=== PATIENT | male | born 1965 | race Caucasian/White ===

== ENCOUNTER 2024-02-29 01:52 | Day surgery (SDC) | payer OTHER, SELFPAY ==
[2024-02-18 10:01] VITALS: BMI 26.3
[2024-02-29 09:40] VITALS: BP 137/92; PULSE 72; RESP 18; TEMP 36.7; O2SAT 100
[2024-02-29] MEDS: LACTATED RINGERS 1,000 ML 150 ML IV CONT (09:43)
--- NOTE | 2024-02-29 11:22 | WPDANESEPPF ---
Anes - Initial Pre Proc Eval Procedure: Operation Date: 02/29/24 10:30 Proposed Procedures p Screening Colonoscopy - Regino Ruiz MD Date/Time: 02/29/24 11:22 Surgeon: Regino Ruiz MD Pre Op Diagnosis: screening colon Patient Data Age: 59 Gender: M Height: 1.88 m Weight: 94 kg Last Vital Signs Temp 98.0 F 02/29/24 09:40 Pulse 72 02/29/24 09:40 Resp 18 02/29/24 09:40 BP 137/92 H 02/29/24 09:40 Pulse Ox 100 02/29/24 09:40 O2 Del Method Room Air 02/29/24 09:40 Allergies Allergy/AdvReac Type Severity Reaction Status Date / Time No Known Allergies Allergy Verified 02/18/24 10:03 Home Medications ?Medication ?Instructions ?Recorded ?Confirmed ?Type alprazolam 0.5 mg tablet 0.25 mg PO DAILY PRN anxiety 02/18/24 02/18/24 History aspirin 81 mg capsule 81 mg PO DAILY 02/18/24 02/18/24 History atorvastatin 40 mg tablet 40 mg PO DAILY 02/18/24 02/18/24 History metoprolol succinate 50 mg 50 mg PO DAILY 02/18/24 02/18/24 History tablet,extended release 24 hr pantoprazole 40 mg tablet,delayed 40 mg PO DAILY 02/18/24 02/18/24 History release paroxetine HCl 40 mg tablet 40 mg PO DAILY 02/18/24 02/18/24 History Patient hx anesthesia problems: none Family hx anesthesia problems: none Results Review: All pre-operative results and documents have been reviewed as part of the pre-operative evaluation. [facility] Social History Social History Smoking status: Former smoker Tobacco type: cigars Substance use type: does not use Living arrangements: with family Spiritual care concerns: No Anes - Eval Final PreProcedure Day of Procedure 02/29/24 11:22 Patient weight: overweight Heart: regular rate and rhythm Lungs: normal air movement Airway: Mallampati scale class II Neurological: alert and oriented Last oral intake: >/= 8 hours ASA classification: II Emergent: no Anesthetic plan: proceed Anesthesia type and monitoring: general GIVS and standard monitoring Results Review: All pre-operative results and documents have been reviewed as part of the pre-operative evaluation. HTN, hyperlipidemia, ex smoker, anxiety. Informed Consent: The patient's anesthetic plan and its attendant risks and benefits were discussed with the patient/family/POA. Questions were solicited and answers provided to the satisfaction of the patient/family/POA.
--- NOTE | 2024-02-29 11:33 | PM.IMHP ---
H&P: HPI History of Present Illness Date/Time: 02/29/24 11:33 Chief Complaint: Screening colonoscopy Narrative: This is the patient's second colonoscopy. There are no GI symptoms and there is no family history of colorectal cancer. Review of Systems Review of Systems: All systems reviewed & are unremarkable except as noted in HPI and below PMFSH Social History Social History Smoking status: Former smoker Tobacco type: cigars Substance use type: does not use Living arrangements: with family Spiritual care concerns: No Meds Home Medications and Allergies Home Medications ?Medication ?Instructions ?Recorded ?Confirmed ?Type alprazolam 0.5 mg tablet 0.25 mg PO DAILY PRN anxiety 02/18/24 02/18/24 History aspirin 81 mg capsule 81 mg PO DAILY 02/18/24 02/18/24 History atorvastatin 40 mg tablet 40 mg PO DAILY 02/18/24 02/18/24 History metoprolol succinate 50 mg 50 mg PO DAILY 02/18/24 02/18/24 History tablet,extended release 24 hr pantoprazole 40 mg tablet,delayed 40 mg PO DAILY 02/18/24 02/18/24 History release paroxetine HCl 40 mg tablet 40 mg PO DAILY 02/18/24 02/18/24 History Allergies Allergy/AdvReac Type Severity Reaction Status Date / Time No Known Allergies Allergy Verified 02/18/24 10:03 Vital Signs Vital Signs - 24 hr 02/29/24 09:40 Temperature 98.0 F Pulse Rate 72 Respiratory Rate 18 Blood Pressure 137/92 H Pulse Oximetry 100 Oxygen Delivery Room Air Exam Const: General: cooperative and healthy appearing Resp: Effort & Inspection: normal respiratory effort and able to speak in complete sentences Auscultation: clear to auscultation bilaterally Cardio: Rate: regular rate Rhythm: regular rhythm GI: Inspection: normal to inspection GI Palp: No No hepatosplenomegaly present Auscultation: normal bowel sounds Rectal Exam: deferred Skin: General skin exam: normal color Psych: Appearance: grossly normal Mental Status: mental status grossly normal Assessment and Plan Assessment and plan (1) Encounter for screening colonoscopy: Code(s): Z12.11 - Encounter for screening for malignant neoplasm of colon Status: Acute Assessment and Plan: The patient is deemed a good candidate for the procedure. Consent signed. Will proceed.
--- NOTE | 2024-02-29 11:53 | PM.IMHP ---
H&P: HPI History of Present Illness Date/Time: 02/29/24 11:53 Chief Complaint: screening for colon cancer Narrative: This is the patient's 2nd colonoscopy. There are no GI symptoms and there is no family history of colorectal cancer. Review of Systems Review of Systems: All systems reviewed & are unremarkable except as noted in HPI and below PMFSH Social History Social History Smoking status: Former smoker Tobacco type: cigars Substance use type: does not use Living arrangements: with family Spiritual care concerns: No Meds Home Medications and Allergies Home Medications ?Medication ?Instructions ?Recorded ?Confirmed ?Type alprazolam 0.5 mg tablet 0.25 mg PO DAILY PRN anxiety 02/18/24 02/18/24 History aspirin 81 mg capsule 81 mg PO DAILY 02/18/24 02/18/24 History atorvastatin 40 mg tablet 40 mg PO DAILY 02/18/24 02/18/24 History metoprolol succinate 50 mg 50 mg PO DAILY 02/18/24 02/18/24 History tablet,extended release 24 hr pantoprazole 40 mg tablet,delayed 40 mg PO DAILY 02/18/24 02/18/24 History release paroxetine HCl 40 mg tablet 40 mg PO DAILY 02/18/24 02/18/24 History Allergies Allergy/AdvReac Type Severity Reaction Status Date / Time No Known Allergies Allergy Verified 02/18/24 10:03 Vital Signs Vital Signs - 24 hr 02/29/24 09:40 Temperature 98.0 F Pulse Rate 72 Respiratory Rate 18 Blood Pressure 137/92 H Pulse Oximetry 100 Oxygen Delivery Room Air Exam Const: General: cooperative and healthy appearing Resp: Effort & Inspection: normal respiratory effort and able to speak in complete sentences Auscultation: clear to auscultation bilaterally Cardio: Rate: regular rate Rhythm: regular rhythm GI: Inspection: normal to inspection GI Palp: No No hepatosplenomegaly present Auscultation: normal bowel sounds Rectal Exam: deferred Skin: General skin exam: normal color Psych: Appearance: grossly normal Mental Status: mental status grossly normal Assessment and Plan Assessment and plan (1) Encounter for screening colonoscopy: Code(s): Z12.11 - Encounter for screening for malignant neoplasm of colon Status: Acute Assessment and Plan: The patient is deemed a good candidate for the procedure. Consent signed. Will proceed.
[2024-02-29 11:54] VITALS: BP 121/77; PULSE 72; RESP 27; O2SAT 100
[2024-02-29 12:04] VITALS: BP 141/90; PULSE 68; RESP 15; O2SAT 100
[2024-02-29 12:14] VITALS: BP 144/88; PULSE 65; RESP 18; O2SAT 100
== END 2024-02-29 12:22 | disposition home or self-care (01) ==
PROVIDERS: Visit Provider Internal Medicine Gastroenterology
PROC: 0DJD8ZZ Inspection of Lower Intestinal Tract, Via Natural or Artificial Opening Endoscopic (ICD-10-PCS; CPT 45378; principal; 2024-02-29 10:30)
DX: Z12.11 Encounter for screening for malignant neoplasm of colon (principal); K64.8 Other hemorrhoids; Z79.82 Long term (current) use of aspirin; Z87.891 Personal history of nicotine dependence
CPT/HCPCS: 45378; J2003; J2704; J7120

== ENCOUNTER 2024-07-10 20:21 | Emergency (ER) | payer OTHER, SELFPAY ==
--- NOTE | ~2024-07-10 | CT_ITS ---
CT cervical spine wo con Ordering provider: Hannah Pope PA-C History: . left sided neck pain . Comparison: None. Technique: CT of the cervical spine was performed without contrast. Sagittal and coronal reformatted images were also obtained and reviewed. Automated exposure control and iterative reconstruction elizabeth hnique were employed. The dose-length product was 433.83 mGy-cm. FINDINGS: VERTEBRAE: No subluxation or acute fracture. The occipital condyles are intact. DISC SPACES: Normal. Narrowing of the foramina at the level of C3-C4 , and C4-C5. Multilevel facet joint disease. PARASPINOUS SOFT TISSUES: Nodule seen in the left lobe of the thyroid with calcification. Ultrasound evaluation advised. IMPRESSION: No acute osseous abnormality cervical spine. Multilevel intervertebral foraminal narrowing. MRI is better for evaluation. Reviewed, dictated and finalized at location A.
--- NOTE | 2024-07-10 20:29 | ECG_ITS ---
Test Date: 2024-07-10 20:36:08 Measurements Intervals [place] Rate: 73 P: 32 [place]: 163 QRS: 38 QRSD: 89 T: 37 QT: 370 QTc: 409 Interpretive Statements SINUS RHYTHM POSSIBLE LEFT ATRIAL ENLARGEMENT MINIMAL Q WAVES- HIGH LATERAL LEADS BASELINE ARTIFACT- I, II, III, AVR BORDERLINE ECG No previous ECG available for comparison Electronically Signed On 07-11-2024 06:17:03 CDT by Syed Gould D.O.
[2024-07-10 20:30] VITALS: BP 152/94; PULSE 79; RESP 15; TEMP 36.1; O2SAT 100
--- NOTE | 2024-07-10 20:44 | ED_ITS ---
HPI - General Adult General Chief complaint: Unspecified Stated complaint: L neck radiating to L elbow pain Time Seen by Provider: 07/10/24 20:44 Source: patient Mode of arrival: ambulatory Limitations: no limitations History of Present Illness HPI narrative: This is a 59 year old male that presents to the ER for neck pain. Ongoing over the last week. Intermittent in nature. No known alleviating or exacerbating factors. He has not taken anything for pain. No recent injuries. Reports the pain radiates into his shoulder. Denies chest pain, shortness of breath, numbness, weakness. Related Data Home Medications ?Medication ?Instructions ?Recorded ?Confirmed ?Last Taken ?Type alprazolam 0.5 mg tablet 0.25 mg PO DAILY PRN anxiety 02/18/24 02/18/24 Unknown History aspirin 81 mg capsule 81 mg PO DAILY 02/18/24 02/18/24 Unknown History atorvastatin 40 mg tablet 40 mg PO DAILY 02/18/24 02/18/24 Unknown History metoprolol succinate 50 mg 50 mg PO DAILY 02/18/24 02/18/24 Unknown History tablet,extended release 24 hr pantoprazole 40 mg tablet,delayed 40 mg PO DAILY 02/18/24 02/18/24 Unknown History release paroxetine HCl 40 mg tablet 40 mg PO DAILY 02/18/24 02/18/24 Unknown History Allergies Allergy/AdvReac Type Severity Reaction Status Date / Time No Known Allergies Allergy Verified 07/10/24 20:23 Review of Systems 2 Review of Systems: All systems reviewed & are unremarkable except as noted in HPI and below PMFSH Past Medical History Medical History (Updated 07/11/24 @ 00:20 by Hannah Pope PA-C) Essential hypertension History of anxiety Social History Social History Smoking status: Former smoker Tobacco type: cigars Substance use type: does not use Living arrangements: with family Spiritual care concerns: No Exam 2 Narrative: GENERAL: Well-appearing, well-nourished, and in no acute distress. HEAD: Normocephalic, atraumatic. EYES: EOMI. ENT: Nares clear, no rhinorrhea or epistaxis. Mucous membranes moist. Oropharynx without tonsillar hypertrophy exudate or other lesions. NECK: Supple. No adenopathy or masses. CHEST: Clear to auscultation. No respiratory distress. No wheezes rales or rhonchi HEART: Regular rate and rhythm. No murmur heard. Normal peripheral pulses. EXTREMITIES: Normal range of motion. No edema. Strength equal in bilateral upper extremities (5/5) SKIN: Warm, dry, no rash. NEURO: No focal deficits. Alert and oriented x3. PSYCH: Normal mood and affect Course Course Emergency Course: Patient updated on his workup and agrees with plan of care Vital Signs Vital signs: Vital Signs Temperature 96.9 F L 07/10/24 20:30 Pulse Rate 79 07/10/24 20:30 Respiratory Rate 15 07/10/24 20:30 Blood Pressure 152/94 H 07/10/24 20:30 Pulse Oximetry 100 07/10/24 20:30 Oxygen Delivery Room Air 07/10/24 20:30 Temperature 96.9 F L 07/10/24 20:30 Pulse Rate 71 07/10/24 23:26 Respiratory Rate 13 07/10/24 23:26 Blood Pressure 159/102 H 07/10/24 23:26 Pulse Oximetry 98 07/10/24 23:26 Oxygen Delivery Room Air 07/10/24 20:30 Medical Decision Making MDM Narrative Medical decision making narrative: Patient presents to the emergency department for left-sided neck pain radiating into the arm. He is afebrile and nontoxic appearing. He is neurologically intact. His vitals are stable. Cbc metabolic panel without concerning findings. EKG without acute changes in his baseline troponin is negative. CT cervical spine without acute osseous abnormalities. Shows some foraminal narrowing. Patient updated on his workup and agrees with plan of care. He is to follow up with primary provider. He was given warnings to return to the ER Differential Diagnosis Differential Diagnosis: Cervical radiculopathy, muscle strain, muscle spasm Vital Signs Vital Signs: Vital Signs Temperature 96.9 F L 07/10/24 20:30 Pulse Rate 79 07/10/24 20:30 Respiratory Rate 15 07/10/24 20:30 Blood Pressure 152/94 H 07/10/24 20:30 Pulse Oximetry 100 07/10/24 20:30 Oxygen Delivery Room Air 07/10/24 20:30 Temperature 96.9 F L 07/10/24 20:30 Pulse Rate 71 07/10/24 23:26 Respiratory Rate 13 07/10/24 23:26 Blood Pressure 159/102 H 07/10/24 23:26 Pulse Oximetry 98 07/10/24 23:26 Oxygen Delivery Room Air 07/10/24 20:30 Lab Data Lab results reviewed: Yes I reviewed the patient's lab results. 07/10/24 21:02 07/10/24 21:02 Labs: Lab Results 07/10/24 Range/Units 21:02 WBC 7.0 (4.5-10.0) K/mm3 RBC 4.59 L (4.6-6.20) M/mm3 Hgb 14.0 (14.0-18.0) g/dL Hct 42.8 (42.0-52.0) % MCV 93.2 (80-100) fl MCH 30.5 (26-34) pg MCHC 32.7 (32-36) g/dl RDW 12.4 (11.5-14.5) % Plt Count 226 (150-375) k/mm3 MPV 9.6 (7.4-10.4) fl Immature Gran % (Auto) 0.6 H (0-0.5) % Neut % (Auto) 60.2 (45.5-73.1) % Lymph % (Auto) 23.4 (18.3-44.2) % [place] % (Auto) 8.1 (2.6-8.5) % Eos % (Auto) 6.8 H (0-4.4) % Baso % (Auto) 0.9 (0.2-1.2) % Lymph # (Auto) 1.65 (0.9-3.2) K/mm3 [place] # (Auto) 0.6 (0.1-0.6) K/mm3 Eos # (Auto) 0.5 H (0-0.3) K/mm3 Baso # (Auto) 0.1 (0.0-0.1) K/mm3 Abs Immat Gran (auto) 0.04 H (0.00-0.031) K/mm3 Absolute Neuts (auto) 4.2 (1.3-6.7) K/mm3 Absolute Nucleated RBC 0.000 (0.0-0.012) K/mm3 Nucleated RBC % 0.0 (0.0-0.2) % Sodium 140 (137-145) mmol/L Potassium 4.3 (3.4-5.0) mmol/L Chloride 105 (98-107) mmol/L Carbon Dioxide 29 (22-30) mmol/L Anion Gap 6 (4-12) mmol/L BUN 17 (9-20) mg/dL Creatinine 0.99 (0.7-1.3) mg/dL Estim Creat Clear Calc 85 ml/min Estimated GFR > 60 (59 - ) Glucose 124 H (65-110) mg/dL Calcium 9.2 (8.4-10.2) mg/dL Total Bilirubin 0.4 (0.2-1.3) mg/dL AST 42 (17-59) U/L ALT 57 H (6-50) U/L Alkaline Phosphatase 71 (38-126) U/L Troponin I < 0.012 (0.000-0.034) ng/mL Total Protein 6.8 (6.3-8.2) g/dL Albumin 4.0 (3.5-5.1) g/dL Imaging Data Radiologist's impression: ITS Impressions Cervical Spine CT 07/10/24 23:18 IMPRESSION: No acute osseous abnormality cervical spine. Multilevel intervertebral foraminal narrowing. MRI is better for evaluation. ECG Data EKG #1: ECG completion date: 07/10/24 EKG Interpretation: normal rate, sinus rhythm, no ST changes and normal QT Critical Care Time Critical Care Time Critical Care Time: No Discharge Plan Discharge Clinical Impression: Neck pain Patient Disposition: Home Condition: Stable Instructions: Cervical Strain (ED), Cervical Spinal Stenosis (ED) Additional Instructions: Return to the ER if you experience chest pain, shortness of breath, weakness, numbness, or any other symptoms that are concerning to you Rest, use ice/heat, take anti-inflammatories (Aleve, Ibuprofen, Naproxen, etc) or Tylenol as needed for pain Follow up with your primary care doctor Patient Language: Danish Prescriptions: No Action metoprolol succinate 50 mg tablet extended release 24 hr 50 mg PO DAILY atorvastatin 40 mg tablet 40 mg PO DAILY paroxetine HCl 40 mg tablet 40 mg PO DAILY pantoprazole 40 mg tablet,delayed release (DR/EC) 40 mg PO DAILY alprazolam 0.5 mg tablet 0.25 mg PO DAILY PRN (Reason: anxiety) aspirin 81 mg capsule 81 mg PO DAILY Follow-up/Referrals: PHYSICIAN NOT ON STAFF,NONSTAFF [Primary Care Provider] -
[2024-07-10 20:48] VITALS: BP 163/97; PULSE 76; RESP 10; O2SAT 100
[2024-07-10 21:16] LABS: Basophils Absolute Auto 0.1 K/mm3 (0.0-0.1); Basophils Percent Auto 0.9 % (0.2-1.2); Eosinophils Absolute Auto 0.5 K/mm3 (0-0.3); Eosinophils Percent Auto 6.8 % (0-4.4); Hematocrit 42.8 % (42.0-52.0); Immature Granulocyte Absolute 0.04 K/mm3 (0.00-0.031); Immature Granulocyte Percent A 0.6 % (0-0.5); Lymphocytes Absolute Auto 1.65 K/mm3 (0.9-3.2); Lymphocytes Percent Auto 23.4 % (18.3-44.2); Mean Corpuscular HGB Conc 32.7 g/dl (32-36); Mean Corpuscular Hemoglobin 30.5 pg (26-34); Mean Corpuscular Volume 93.2 fl (80-100); Mean Platelet Volume 9.6 fl (7.4-10.4); Monocytes Absolute Auto 0.6 K/mm3 (0.1-0.6); Monocytes Percent Auto 8.1 % (2.6-8.5); Neutrophils Absolute Auto 4.2 K/mm3 (1.3-6.7); Neutrophils Percent Auto 60.2 % (45.5-73.1); Platelet Count Result 226 k/mm3 (150-375); Red Blood Count 4.59 M/mm3 (4.6-6.20); Red Cell Distribution Width 12.4 % (11.5-14.5)
--- OUTSIDE RECORDS SUMMARY | 2024-07-10 21:16 | XMS_ITS | Referral Summary ---
Author Organization [facility] Address [address] [place] [address] Care Team Providers Care Skiing Instructor Name Role Phone Kilo Wakefield MD Primary Care Provider [phone] Allergies No known active allergies Medications multivitamin capsule Take 1 capsule by mouth daily Active omega 6-yah-toy-fish oil (Fish OiL) 100-160-1,000 mg capsule Active ciprofloxacin-d exAMETHasone (CIPRODEX) otic suspension Administer 4 drops into the right ear 2 (two) times a day 7.5 mL 2 Active Additional Information Patient not taking.Reported on 10/24/2023 metoprolol XL (TOPROL-XL) 50 mg extended release tablet TAKE 1 TABLET BY MOUTH EVERY MORNING 90 tablet [address] (PROTONIX) 40 mg EC tablet TAKE 1 TABLET BY MOUTH EVERY MORNING 90 tablet 1 5 02/10/19 26 Active tamsulosin (FLOMAX) 0.4 mg extended release capsule TAKE 1 CAPSULE(0.4 MG) BY MOUTH DAILY 30 capsule 5 5 Active ALPRAZolam (XANAX) 0.5 mg tablet TAKE 1 TABLET(0.5 MG) BY MOUTH THREE TIMES DAILY NEEDED FOR ANXIETY 30 tablet 5 Active PARoxetine (PAXIL) 40 mg tablet TAKE 1 TABLET BY MOUTH EVERY DAY 90 tablet 1 5 Active atorvastatin (LIPITOR) 40 mg tablet TAKE 1 TABLET BY MOUTH EVERY MORNING 90 tablet 1 5 06/04/19 26 Active Active Problems Problem Noted Date Diagnosed Date Benign prostatic hyperplasia with urinary freque ncy 10/24/2023 Assessment & Plan (10/24/2023 2:41 PM CDT): Start Flomax. Trochanteric bursitis of right hip 10/24/2023 Assessment & Plan (10/24/2023 3:09 PM CDT): NSAIDs PRN. 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 Right ear pain 09/28/2021 Assessment & Plan (09/28/2021 3:21 PM CDT): Start Ciprodex. If no improvement, send to ENT. Encounter for preventive care 03/30/2021 Assessment & Plan (04/18/2023 3:35 PM CDT): Exercise 30 minutes per day 5x weekly. Eat heart healthy (Mediterranean) diet of fruits, vegetables, and whole grains; avoid saturated fats and excess sweets. I recommended that he schedule his colonoscopy. Check PSA today. Annual flu shot Annual COVID shot Shingrix (shingles) shots (2 shots, 2-6 months apart) Assessment & Plan (03/30/2021 4:30 PM MIX MILL TENDER): Continue healthy lifestyle. I will send him back to GI as he is likely due for another colonoscopy (Dr. Escalera referral). PSA screening today along with general labs. Recommend Shingrix and flu shot. Routine general medical exam ination at a health care facility 03/17/2020 Gastroesophageal reflux disease 03/17/2020 Assessment & Plan (04/18/2023 3:35 PM CDT): Continue PPI. Assessment & Plan (03/30/2021 4:29 PM MIX MILL TENDER): On PPI. SHEYLA (obstructive sleep apnea) 03/17/2020 Assessment & Plan (03/30/2021 4:29 PM MIX MILL TENDER): Recently started CPAP. Anxiety disorder 08/25/2019 Assessment & Plan (10/24/2023 3:10 PM CDT): Continue Paxil and PRN Xanax. Assessment & Plan (04/18/2023 2:14 PM CDT): Refill alprazolam. Continue paroxetine. Assessment & Plan (10/11/2022 4:14 PM CDT): Dealing with some situation anxiety. Continue Paxil. Refilled Xanax to take PRN. Assessment & Plan (04/05/2022 2:47 PM MIX MILL TENDER): Continue Paxil and PRN Xanax. Assessment & Plan (09/28/2021 3:20 PM CDT): Start Xanax PRN. Continue Paxil. HTN (hypertension) 07/07/2019 Assessment & Plan (10/24/2023 2:47 PM CDT): At goal on current therapy. Assessment & Plan (04/18/2023 3:35 PM CDT): At goal on current therapy. Assessment & Plan (10/11/2022 4:14 PM CDT): At goal on current therapy. Assessment & Plan (04/05/2022 2:47 PM MIX MILL TENDER): At goal on current therapy. Assessment & Plan (09/28/2021 3:20 PM CDT): At goal on current therapy. Assessment & Plan (03/30/2021 4:28 PM MIX MILL TENDER): BP elevated today. Check BP's at home using automated cuff and keep log. Goal < 130/80. Hyperlipidemia 07/07/2019 Assessment & Plan (10/24/2023 2:47 PM CDT): At goal on current therapy. Assessment & Plan (04/18/2023 2:14 PM CDT): At goal on current therapy. Assessment & Plan (10/11/2022 4:14 PM CDT): At goal on current therapy. Assessment & Plan (04/05/2022 2:47 PM MIX MILL TENDER): At goal on current therapy. Assessment & Plan (09/28/2021 3:20 PM CDT): At goal on current therapy. Assessment & Plan (03/30/2021 4:28 PM MIX MILL TENDER): At goal on current therapy. Snoring 07/07/2019 Social History Tobacco Use Types Packs/Day Years Used Date Smoking Tobacco: Never Smokeless Tobacco: Never Tobacco Cessation:Counseling Given: Not Answered AUDIT-C Answer Date Recorded Q1: How often do you have a drink containing alc ohol? 2-4 times a month 03/30/2021 Q2: How many drinks containi ng alcohol do you have on a typical day when you are drinking? 1 or 2 03/30/2021 Q3: How often do you have si x or more drinks on one occasion? Never 03/30/2021 Sex and Gender Information Value Date Recorded Sex Assigned at Not on file Legal Sex Male 7:37 PM MIX MILL TENDER Gender Identity Male 07/06/2019 9:02 PM CDT Sexual Orientation Straight 07/06/2019 9: 03 PM CDT Last Filed Vital Signs Vital Sign Reading Time Taken Comments Blood Pressure 125/80 10/24/2023 2:23 PM CDT Pulse 65 10/24/2023 2:23 PM CDT Temperature 36.6 C (97.9 F) 11/22/2020 9:52 AM CDT Respiratory Rate - - Oxygen Saturation 99% 10/24/2023 2:23 PM CDT Inhaled Oxygen Concentration - - Weight 97 kg (213 lb 12.8 oz) 10/24/2023 2:23 PM CDT Height 190.5 cm (6' 3) 10/24/2023 2:23 PM CDT Body Mass Index 26.72 10/24/2023 2:23 PM CDT Plan of Treatment Not on file Procedures Procedure Name Priority Date/Time Associated Diagnosis Comments PSA SCREEN Routine 04/18/2023 2:27 PM CDT Prostate cancer screening from Last 3 Months or Most Recently Relevant to Health Maintenance Results * PSA screen (04/18/2023 2:27 PM CDT) PSA 1.7 0.0 - 4.0 ng/mL [facility] - Comment: Vani ECLIA methodology. According to the [employer], Serum PSA should decrease and remain at undetectable levels after radical prostatectomy. The AUA defines biochemical recurrence as an initial PSA value 0.2 ng/mL or greater followed by a subsequent confirmatory PSA value 0.2 ng/mL or greater. Values obtained with different assay methods or kits cannot be used interchangeably. Results cannot be interpreted as absolute evidence of the presence or absence of malignant disease. Blood 04/18/2023 2:27 PM CDT 04/18/2023 Narrative [facility] - 04/19/2023 11:12 AM CDT Performed at: - [address] [id number] Spudder: Jeff Whitmore PhD, Phone: [phone] us Kilo Wakefield MD LAB BLOOD ORDERABLES Final Re sult [facility] - 01 from Last 3 Months or Most Recently Relevant to Health Maintenance Insurance [facility] CHO[facility] PLUS [facility] H[facility]/PPO Address: [address] [address] [place] [address] [facility] CHO[facility] H[facility]/PPO Address: [address] [address] [place] [address] Care Teams Skiing Instructor Relationship Specialty Start Date End Date Kilo Wakefield MD PCP - General Endocrinology Diabetes & Metabolism 09/17/20
--- OUTSIDE RECORDS SUMMARY | 2024-07-10 21:16 | XMS_ITS | Encounter Summary ---
Author Organization [facility] Address [address] [place] [address] Phone Care Team Providers Care Bariatric Physician Name Role Phone Jose Beebe MD Primary Care Provider [phone] Kilo Wakefield MD Primary Care Provider [phone] Encounter Details Date Type Department Care Team (Late st Contact Info) Description 09/17/2019 Telephone [facility] Neuro Sleep [address] [place] [address] Alina Bass, RPSGT Social History Tobacco Use Types Packs/Day Years Used Date Smoking Tobacco: Never Assessed Sex and Gender Information Value Date Recorded Sex Assigned at Not on file 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
--- OUTSIDE RECORDS SUMMARY | 2024-07-10 21:16 | XMS_ITS | Clinical Summary ---
Author Organization [facility] Address [facility] [place] [address] Care Team Providers Care Butcher Or Smallgoods Maker Name Role Phone Kilo Wakefield MD Primary Care Provider [phone] Allergies No known active allergies Medications multivitamin capsule Take 1 capsule by mouth daily Active omega 7-qer-ice-fish oil (Fish OiL) 100-160-1,000 mg capsule Active [...] 04/05/2022 Assessment & Plan (04/05/2022 2:47 PM PROFESSIONAL WRESTLER): Avoid positions that compress the ulnar nerve. [...] apart) Assessment & Plan (03/30/2021 4:30 PM PROFESSIONAL WRESTLER): Continue healthy lifestyle. I will send him back to GI as he is likely due for another colonoscopy (Dr. Escalera referral). PSA screening today along with general labs. Recommend Shingrix and flu shot. Routine general medical exam ination at a health care facility 03/17/2020 Gastroesophageal reflux disease 03/17/2020 Assessment & Plan (04/18/2023 3:35 PM CDT): Continue PPI. Assessment & Plan (03/30/2021 4:29 PM PROFESSIONAL WRESTLER): On PPI. SHEYLA (obstructive sleep apnea) 03/17/2020 Assessment & Plan (03/30/2021 4:29 PM PROFESSIONAL WRESTLER): Recently started CPAP. Anxiety disorder 08/25/2019 Assessment & Plan (10/24/2023 3:10 PM CDT): Continue Paxil and PRN Xanax. Assessment & Plan (04/18/2023 2:14 PM CDT): Refill alprazolam. Continue paroxetine. Assessment & Plan (10/11/2022 4:14 PM CDT): Dealing with some situation anxiety. Continue Paxil. Refilled Xanax to take PRN. Assessment & Plan (04/05/2022 2:47 PM PROFESSIONAL WRESTLER): Continue Paxil and PRN Xanax. Assessment & Plan (09/28/2021 3:20 PM CDT): Start Xanax PRN. Continue Paxil. HTN (hypertension) 07/07/2019 Assessment & Plan (10/24/2023 2:47 PM CDT): At goal on current therapy. Assessment & Plan (04/18/2023 3:35 PM CDT): At goal on current therapy. Assessment & Plan (10/11/2022 4:14 PM CDT): At goal on current therapy. Assessment & Plan (04/05/2022 2:47 PM PROFESSIONAL WRESTLER): At goal on current therapy. Assessment & Plan (09/28/2021 3:20 PM CDT): At goal on current therapy. Assessment & Plan (03/30/2021 4:28 PM PROFESSIONAL WRESTLER): BP elevated today. Check BP's at home using automated cuff and keep log. Goal < 130/80. Hyperlipidemia 07/07/2019 Assessment & Plan (10/24/2023 2:47 PM CDT): At goal on current therapy. Assessment & Plan (04/18/2023 2:14 PM CDT): At goal on current therapy. Assessment & Plan (10/11/2022 4:14 PM CDT): At goal on current therapy. Assessment & Plan (04/05/2022 2:47 PM PROFESSIONAL WRESTLER): At goal on current therapy. Assessment & Plan (09/28/2021 3:20 PM CDT): At goal on current therapy. Assessment & Plan (03/30/2021 4:28 PM PROFESSIONAL WRESTLER): At goal on current therapy. Snoring 07/07/2019 Surgical History Surgery Date Site/Laterality Comments FINGER SURGERY Social History Tobacco Use Types Packs/Day Years [...] on file Legal Sex Male 7:37 PM PROFESSIONAL WRESTLER Gender Identity Male 07/06/2019 9:02 PM CDT Sexual Orientation Straight 07/06/2019 9: 03 PM CDT Obstetrics History Last Filed Vital Signs Vital Sign Reading [...] 10/24/2023 2:23 PM CDT Plan of Treatment Health Maintenance Due Date Last Done Comments Colon Cancer Screening-Colonoscopy 1966 Depression Screening 1966 Hepatitis C Screening 1966 Hepatitis B Screening 01/20/1984 Zoster Vaccine (1 of 2) 01/20/2016 Regular Well Visit/Exam 18-64 04/17/2024 04/18/2023, 03/30/2021, 03/17/2020 Influenza Vaccine (Season Ended) 2024 Prostate Cancer Screening-PSA 04/17/2025 04/18/2023, 04/05/2022, 03/30/2021, Additional history exists DTaP/Tdap/Td Vaccine (2 - Td or Tdap) 07/22/2028 07/22/2018 Pneumococcal vaccine <65 Aged Out No longer eligible based on patient's age to complete this topic Procedures Procedure Name Priority Date/Time Associated Diagnosis Comments PSA SCREEN Routine 04/18/2023 2:27 PM CDT Prostate cancer screening from Last 3 Months or Most Recently Relevant to Health Maintenance Results * PSA screen (04/18/2023 2:27 PM CDT) [facility] PSA 1.7 0.0 - 4.0 ng/mL [facility] - Comment: Vani ECLIA methodology. According to the [place] [employer] Association, Serum PSA should decrease and [...] - 04/19/2023 11:12 AM CDT Performed at: [address] [id number] Therapeutic Program Worker: Jeff Whitmore PhD, Phone: [phone] Kilo Wakefield MD LAB BLOOD ORDERABLES Final Re sult [facility] - 01 from Last 3 Months or Most Recently Relevant to Health Maintenance Insurance CHOICE PLUS CHOICE PLUS Care Teams Butcher Or Smallgoods Maker Relationship Specialty Start Date End Date Kilo Wakefield MD PCP - General Endocrinology Diabetes & Metabolism 09/17/20
[2024-07-10 22:11] LABS: Alanine Aminotransferase 57 U/L (6-50); Alkaline Phosphatase 71 U/L (38-126); Anion Gap 6 mmol/L (4-12); Aspartate Amino Transferase 42 U/L (17-59); Bilirubin,Total 0.4 mg/dL (0.2-1.3); Blood Urea Nitrogen 17 mg/dL (9-20); Calcium 9.2 mg/dL (8.4-10.2); Carbon Dioxide 29 mmol/L (22-30); Chloride 105 mmol/L (98-107); Estimated CRCL calculation 85 ml/min; Estimated Glomerular Filt Rate > 60; Glucose 124 mg/dL (65-110); Potassium 4.3 mmol/L (3.4-5.0); Sodium 140 mmol/L (137-145); Total Protein 6.8 g/dL (6.3-8.2); Troponin I < 0.012 ng/mL (0.000-0.034)
[2024-07-10 23:26] VITALS: BP 159/102; PULSE 71; RESP 13; O2SAT 98
[2024-07-11 00:35] VITALS: BP 152/98; PULSE 69; RESP 15; O2SAT 99
[2024-07-11 00:36] VITALS: BP 152/98; PULSE 69; RESP 15; O2SAT 99
== END 2024-07-11 00:39 | disposition home or self-care (01) ==
PROVIDERS: Emergency Provider Physician Assistant
DX: M54.2 Cervicalgia (principal); I10 Essential (primary) hypertension; F41.9 Anxiety disorder, unspecified; Z79.82 Long term (current) use of aspirin; Z79.899 Other long term (current) drug therapy; R94.31 Abnormal electrocardiogram [ECG] [EKG]; M48.02 Spinal stenosis, cervical region
CPT/HCPCS: 36415; 72125; 80053; 84484; 85025; 93005; 99284

== ENCOUNTER 2024-09-08 21:03 | Emergency (ER) | payer OTHER, SELFPAY ==
--- OUTSIDE RECORDS SUMMARY | 2024-09-08 21:05 | XMS_ITS | Encounter Summary ---
Author Organization [facility] Address [address] [place] [address] Phone Care Team Providers Care Parts Sales Manager Name Role Phone Jose Beebe MD Primary Care Provider [phone] Kilo Wakefield MD Primary Care Provider Encounter Details Date Type Department Care Team (Late st Contact Info) Description 09/17/2019 Telephone [facility] Neuro Sleep [address] [facility] 6th [address] [place] [address] Alina Bass, RPSGT Social History Tobacco Use Types Packs/Day Years Used Date Smoking Tobacco: Never Assessed Sex and Gender Information Value Date Recorded Sex Assigned at Not on file Legal Sex Male 7:37 PM MOLDER HAND Gender Identity Male 07/06/2019 9:02 PM CDT Sexual Orientation Straight 07/06/2019 9: 03 PM CDT documented as of this encounter Plan of Treatment Not on file documented as of this encounter Visit Diagnoses Not on filedocumented in this encounter Care Teams Parts Sales Manager Relationship Specialty Start Date End Date Jose Beebe MD [address] [address] PCP - General Endocrinology Diabetes & Metabolism 04/22/19 09/16/20 Kilo Wakefield MD [address] [address] PCP - General Endocrinology Diabetes & Metabolism 09/17/20 documented as of this encounter
--- OUTSIDE RECORDS SUMMARY | 2024-09-08 21:05 | XMS_ITS | Referral Summary ---
Author Organization [facility] Address [address] [place] [address] Care Team Providers Care Preforms Laminator Name Role Phone Kilo Wakefield MD Primary Care Provider Allergies No known active allergies Medications multivitamin capsule Take 1 capsule by mouth daily Active omega 8-cho-unk-fish oil (Fish OiL) 100-160-1,000 mg capsule Active ciprofloxacin-d exAMETHasone (CIPRODEX) otic suspension Administer 4 drops into the right ear 2 (two) times a day 7.5 mL 2 Active Additional Information Patient not taking.Reported on 10/24/2023 metoprolol XL (TOPROL-XL) 50 mg extended release tablet TAKE 1 TABLET BY MOUTH EVERY MORNING 90 tablet 3 4 Active tamsulosin (FLOMAX) 0.4 mg extended release [...] 90 tablet 1 5 06/04/[address] (PROTONIX) 40 mg EC tablet TAKE 1 TABLET BY MOUTH EVERY MORNING 90 tablet 5 08/07/19 26 Active Active Problems Problem Noted Date Diagnosed Date Benign prostatic hyperplasia with urinary freque ncy 10/24/2023 Assessment & Plan (10/24/2023 2:41 PM CDT): Start Flomax. Trochanteric bursitis of right hip 10/24/2023 Assessment & Plan (10/24/2023 3:09 PM CDT): NSAIDs PRN. 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 [...] apart) Assessment & Plan (03/30/2021 4:30 PM HEMATOLOGY TECHNICIAN): Continue healthy lifestyle. I will send him back to GI as he is likely due for another colonoscopy (Dr. Escalera referral). PSA screening today along with general labs. Recommend Shingrix and flu shot. Routine general medical exam ination at a health care facility 03/17/2020 Gastroesophageal reflux disease 03/17/2020 Assessment & Plan (04/18/2023 3:35 PM CDT): Continue PPI. Assessment & Plan (03/30/2021 4:29 PM HEMATOLOGY TECHNICIAN): On PPI. SHEYLA (obstructive sleep apnea) 03/17/2020 Assessment & Plan (03/30/2021 4:29 PM HEMATOLOGY TECHNICIAN): Recently started CPAP. Anxiety disorder 08/25/2019 Assessment & Plan (10/24/2023 3:10 PM CDT): Continue Paxil and PRN Xanax. Assessment & Plan (04/18/2023 2:14 PM CDT): Refill alprazolam. Continue paroxetine. Assessment & Plan (10/11/2022 4:14 PM CDT): Dealing with some situation anxiety. Continue Paxil. Refilled Xanax to take PRN. Assessment & Plan (04/05/2022 2:47 PM HEMATOLOGY TECHNICIAN): Continue Paxil and PRN Xanax. Assessment & Plan (09/28/2021 3:20 PM CDT): Start Xanax PRN. Continue Paxil. HTN (hypertension) 07/07/2019 Assessment & Plan (10/24/2023 2:47 PM CDT): At goal on current therapy. Assessment & Plan (04/18/2023 3:35 PM CDT): At goal on current therapy. Assessment & Plan (10/11/2022 4:14 PM CDT): At goal on current therapy. Assessment & Plan (04/05/2022 2:47 PM HEMATOLOGY TECHNICIAN): At goal on current therapy. Assessment & Plan (09/28/2021 3:20 PM CDT): At goal on current therapy. Assessment & Plan (03/30/2021 4:28 PM HEMATOLOGY TECHNICIAN): BP elevated today. Check BP's at home using automated cuff and keep log. Goal < 130/80. Hyperlipidemia 07/07/2019 Assessment & Plan (10/24/2023 2:47 PM CDT): At goal on current therapy. Assessment & Plan (04/18/2023 2:14 PM CDT): At goal on current therapy. Assessment & Plan (10/11/2022 4:14 PM CDT): At goal on current therapy. Assessment & Plan (04/05/2022 2:47 PM HEMATOLOGY TECHNICIAN): At goal on current therapy. Assessment & Plan (09/28/2021 3:20 PM CDT): At goal on current therapy. Assessment & Plan (03/30/2021 4:28 PM HEMATOLOGY TECHNICIAN): At goal on current therapy. Snoring 07/07/2019 [...] on file Legal Sex Male 7:37 PM HEMATOLOGY TECHNICIAN Gender Identity Male 07/06/2019 9:02 PM CDT [...] Comment: Vani ECLIA methodology. According to the [place] Urological Association, Serum PSA should decrease and [...] - 04/19/2023 11:12 AM CDT Performed at: [facility] [id number] Professor Of Early Childhood Education: Jeff Whitmore PhD, Phone: [phone] Kilo Wakefield MD LAB BLOOD ORDERABLES Fi nal [facility] - 01 from Last 3 Months or Most Recently Relevant to Health Maintenance Insurance [facility] CHOICE PLUS [facility] HMO/PPO Address: [address] [address] [place] [address] [facility] CHOICE PLUS [facility] HMO/PPO Address: [address] [address] [place] [address] Care Teams Preforms Laminator Relationship Specialty Start Date End Date Kilo Wakefield MD PCP - General Endocrinology Diabetes & Metabolism 09/17/20
--- OUTSIDE RECORDS SUMMARY | 2024-09-08 21:05 | XMS_ITS | Clinical Summary ---
Author Organization [facility] Address [facility] [place] [address] Care Team Providers Care Electrification Adviser Name Role Phone Kilo Wakefield MD Primary Care Provider Allergies No known active allergies Medications multivitamin capsule Take 1 capsule by mouth daily Active omega 5-azn-oxq-fish oil (Fish OiL) 100-160-1,000 mg capsule Active [...] 04/05/2022 Assessment & Plan (04/05/2022 2:47 PM MEDICATION AIDE): Avoid positions that compress the ulnar nerve. [...] apart) Assessment & Plan (03/30/2021 4:30 PM MEDICATION AIDE): Continue healthy lifestyle. I will send him back to GI as he is likely due for another colonoscopy (Dr. Escalera referral). PSA screening today along with general labs. Recommend Shingrix and flu shot. Routine general medical exam ination at a health care facility 03/17/2020 Gastroesophageal reflux disease 03/17/2020 Assessment & Plan (04/18/2023 3:35 PM CDT): Continue PPI. Assessment & Plan (03/30/2021 4:29 PM MEDICATION AIDE): On PPI. SHEYLA (obstructive sleep apnea) 03/17/2020 Assessment & Plan (03/30/2021 4:29 PM MEDICATION AIDE): Recently started CPAP. Anxiety disorder 08/25/2019 Assessment & Plan (10/24/2023 3:10 PM CDT): Continue Paxil and PRN Xanax. Assessment & Plan (04/18/2023 2:14 PM CDT): Refill alprazolam. Continue paroxetine. Assessment & Plan (10/11/2022 4:14 PM CDT): Dealing with some situation anxiety. Continue Paxil. Refilled Xanax to take PRN. Assessment & Plan (04/05/2022 2:47 PM MEDICATION AIDE): Continue Paxil and PRN Xanax. Assessment & Plan (09/28/2021 3:20 PM CDT): Start Xanax PRN. Continue Paxil. HTN (hypertension) 07/07/2019 Assessment & Plan (10/24/2023 2:47 PM CDT): At goal on current therapy. Assessment & Plan (04/18/2023 3:35 PM CDT): At goal on current therapy. Assessment & Plan (10/11/2022 4:14 PM CDT): At goal on current therapy. Assessment & Plan (04/05/2022 2:47 PM MEDICATION AIDE): At goal on current therapy. Assessment & Plan (09/28/2021 3:20 PM CDT): At goal on current therapy. Assessment & Plan (03/30/2021 4:28 PM MEDICATION AIDE): BP elevated today. Check BP's at home using automated cuff and keep log. Goal < 130/80. Hyperlipidemia 07/07/2019 Assessment & Plan (10/24/2023 2:47 PM CDT): At goal on current therapy. Assessment & Plan (04/18/2023 2:14 PM CDT): At goal on current therapy. Assessment & Plan (10/11/2022 4:14 PM CDT): At goal on current therapy. Assessment & Plan (04/05/2022 2:47 PM MEDICATION AIDE): At goal on current therapy. Assessment & Plan (09/28/2021 3:20 PM CDT): At goal on current therapy. Assessment & Plan (03/30/2021 4:28 PM MEDICATION AIDE): At goal on current therapy. Snoring 07/07/2019 [...] on file Legal Sex Male 7:37 PM MEDICATION AIDE Gender Identity Male 07/06/2019 9:02 PM CDT [...] 18-64 04/17/2024 04/18/2023, 03/30/2021, 03/17/2020 Influenza Vaccine (#1) 2024 Prostate Cancer Screening-PSA 04/17/2025 04/18/2023, 04/05/2022, [...] * PSA screen (04/18/2023 2:27 PM CDT) [facility] PSA 1.7 0.0 - 4.0 ng/mL [facility] - Comment: Vani ECLIA methodology. According to the [place] U[employer] Association, Serum PSA should decrease and [...] - 04/19/2023 11:12 AM CDT Performed at: [address] [id number] Sales Agent Pest Control Service: Jeff Whitmore PhD, Phone: [phone] Kilo Wakefield MD LAB BLOOD ORDERABLES Fi nal Result [facility] - 01 from Last 3 Months or Most Recently Relevant to Health Maintenance Insurance CHOICE PLUS CHOICE PLUS Care Teams Electrification Adviser Relationship Specialty Start Date End Date Kilo Wakefield MD PCP - General Endocrinology Diabetes & Metabolism 09/17/20
[2024-09-08 22:37] VITALS: BP 155/95; PULSE 77; RESP 16; TEMP 36.4; O2SAT 97
[2024-09-09 00:23] VITALS: BP 188/104; PULSE 70; RESP 16; TEMP 36.3; O2SAT 96
[2024-09-09 02:01] VITALS: BP 170/110; PULSE 76; RESP 14; O2SAT 97
--- OUTSIDE RECORDS SUMMARY | 2024-09-09 02:06 | XMS_ITS | Encounter Summary ---
Author Organization [facility] Address [address] [place] [address] Phone Care Team Providers Care Road Roller Operator Name Role Phone Jose Beebe MD Primary Care Provider [phone] Kilo Wakefield MD Primary Care Provider Encounter Details Date Type Department Care Team (Late st Contact Info) Description 09/17/2019 Telephone [facility] Neuro Sleep [address] [facility] 6th [address] [place] [address] Alina Bass, RPSGT Social History Tobacco Use Types Packs/Day Years Used Date Smoking Tobacco: Never Assessed Sex and Gender Information Value Date Recorded Sex Assigned at Not on file Legal Sex Male 7:37 PM PRESSFITTER Gender Identity Male 07/06/2019 9:02 PM CDT Sexual Orientation Straight 07/06/2019 9: 03 PM CDT documented as of this encounter Plan of Treatment Not on file documented as of this encounter Visit Diagnoses Not on filedocumented in this encounter Care Teams Road Roller Operator Relationship Specialty Start Date End Date Jose Beebe MD [address] [address] PCP - General Endocrinology Diabetes & Metabolism 04/22/19 09/16/20 Kilo Wakefield MD [address] [address] PCP - General Endocrinology Diabetes & Metabolism 09/17/20 documented as of this encounter
--- OUTSIDE RECORDS SUMMARY | 2024-09-09 02:07 | XMS_ITS | Clinical Summary ---
Author Organization [facility] Address [facility] [place] [address] Care Team Providers Care Cyber Intel Planner Name Role Phone Kilo Wakefield MD Primary Care Provider Allergies No known active allergies Medications multivitamin capsule Take 1 capsule by mouth daily Active omega 8-xql-qjt-fish oil (Fish OiL) 100-160-1,000 mg capsule Active [...] 04/05/2022 Assessment & Plan (04/05/2022 2:47 PM UPPER INSPECTOR): Avoid positions that compress the ulnar nerve. [...] apart) Assessment & Plan (03/30/2021 4:30 PM UPPER INSPECTOR): Continue healthy lifestyle. I will send him back to GI as he is likely due for another colonoscopy (Dr. Escalera referral). PSA screening today along with general labs. Recommend Shingrix and flu shot. Routine general medical exam ination at a health care facility 03/17/2020 Gastroesophageal reflux disease 03/17/2020 Assessment & Plan (04/18/2023 3:35 PM CDT): Continue PPI. Assessment & Plan (03/30/2021 4:29 PM UPPER INSPECTOR): On PPI. SHEYLA (obstructive sleep apnea) 03/17/2020 Assessment & Plan (03/30/2021 4:29 PM UPPER INSPECTOR): Recently started CPAP. Anxiety disorder 08/25/2019 Assessment & Plan (10/24/2023 3:10 PM CDT): Continue Paxil and PRN Xanax. Assessment & Plan (04/18/2023 2:14 PM CDT): Refill alprazolam. Continue paroxetine. Assessment & Plan (10/11/2022 4:14 PM CDT): Dealing with some situation anxiety. Continue Paxil. Refilled Xanax to take PRN. Assessment & Plan (04/05/2022 2:47 PM UPPER INSPECTOR): Continue Paxil and PRN Xanax. Assessment & Plan (09/28/2021 3:20 PM CDT): Start Xanax PRN. Continue Paxil. HTN (hypertension) 07/07/2019 Assessment & Plan (10/24/2023 2:47 PM CDT): At goal on current therapy. Assessment & Plan (04/18/2023 3:35 PM CDT): At goal on current therapy. Assessment & Plan (10/11/2022 4:14 PM CDT): At goal on current therapy. Assessment & Plan (04/05/2022 2:47 PM UPPER INSPECTOR): At goal on current therapy. Assessment & Plan (09/28/2021 3:20 PM CDT): At goal on current therapy. Assessment & Plan (03/30/2021 4:28 PM UPPER INSPECTOR): BP elevated today. Check BP's at home using automated cuff and keep log. Goal < 130/80. Hyperlipidemia 07/07/2019 Assessment & Plan (10/24/2023 2:47 PM CDT): At goal on current therapy. Assessment & Plan (04/18/2023 2:14 PM CDT): At goal on current therapy. Assessment & Plan (10/11/2022 4:14 PM CDT): At goal on current therapy. Assessment & Plan (04/05/2022 2:47 PM UPPER INSPECTOR): At goal on current therapy. Assessment & Plan (09/28/2021 3:20 PM CDT): At goal on current therapy. Assessment & Plan (03/30/2021 4:28 PM UPPER INSPECTOR): At goal on current therapy. Snoring 07/07/2019 [...] on file Legal Sex Male 7:37 PM UPPER INSPECTOR Gender Identity Male 07/06/2019 9:02 PM CDT [...] * PSA screen (04/18/2023 2:27 PM CDT) [facility] PSA 1.7 0.0 - 4.0 ng/mL [facility] - Comment: Vani ECLIA methodology. According to the [place] Urological Association, Serum PSA should decrease and [...] - 04/19/2023 11:12 AM CDT Performed at: [address] [id number] Poultry Farm Laborer: Jeff Whitmore PhD, Phone: [phone] Kilo Wakefield MD LAB BLOOD ORDERABLES Fi nal Result [facility] - 01 from Last 3 Months or Most Recently Relevant to Health Maintenance Insurance CHOICE PLUS CHOICE PLUS Care Teams Cyber Intel Planner Relationship Specialty Start Date End Date Kilo Wakefield MD PCP - General Endocrinology Diabetes & Metabolism 09/17/20
--- OUTSIDE RECORDS SUMMARY | 2024-09-09 02:07 | XMS_ITS | Referral Summary ---
Author Organization [facility] Address [address] [place] [address] Care Team Providers Care Mattress Stuffer Name Role Phone Kilo Wakefield MD Primary Care Provider Allergies No known active allergies Medications multivitamin capsule Take 1 capsule by mouth daily Active omega 3-biv-nlx-fish oil (Fish OiL) 100-160-1,000 mg capsule Active [...] 04/05/2022 Assessment & Plan (04/05/2022 2:47 PM SCHOOL BOAT DRIVER): Avoid positions that compress the ulnar nerve. [...] apart) Assessment & Plan (03/30/2021 4:30 PM SCHOOL BOAT DRIVER): Continue healthy lifestyle. I will send him back to GI as he is likely due for another colonoscopy (Dr. Escalera referral). PSA screening today along with general labs. Recommend Shingrix and flu shot. Routine general medical exam ination at a health care facility 03/17/2020 Gastroesophageal reflux disease 03/17/2020 Assessment & Plan (04/18/2023 3:35 PM CDT): Continue PPI. Assessment & Plan (03/30/2021 4:29 PM SCHOOL BOAT DRIVER): On PPI. SHEYLA (obstructive sleep apnea) 03/17/2020 Assessment & Plan (03/30/2021 4:29 PM SCHOOL BOAT DRIVER): Recently started CPAP. Anxiety disorder 08/25/2019 Assessment & Plan (10/24/2023 3:10 PM CDT): Continue Paxil and PRN Xanax. Assessment & Plan (04/18/2023 2:14 PM CDT): Refill alprazolam. Continue paroxetine. Assessment & Plan (10/11/2022 4:14 PM CDT): Dealing with some situation anxiety. Continue Paxil. Refilled Xanax to take PRN. Assessment & Plan (04/05/2022 2:47 PM SCHOOL BOAT DRIVER): Continue Paxil and PRN Xanax. Assessment & Plan (09/28/2021 3:20 PM CDT): Start Xanax PRN. Continue Paxil. HTN (hypertension) 07/07/2019 Assessment & Plan (10/24/2023 2:47 PM CDT): At goal on current therapy. Assessment & Plan (04/18/2023 3:35 PM CDT): At goal on current therapy. Assessment & Plan (10/11/2022 4:14 PM CDT): At goal on current therapy. Assessment & Plan (04/05/2022 2:47 PM SCHOOL BOAT DRIVER): At goal on current therapy. Assessment & Plan (09/28/2021 3:20 PM CDT): At goal on current therapy. Assessment & Plan (03/30/2021 4:28 PM SCHOOL BOAT DRIVER): BP elevated today. Check BP's at home using automated cuff and keep log. Goal < 130/80. Hyperlipidemia 07/07/2019 Assessment & Plan (10/24/2023 2:47 PM CDT): At goal on current therapy. Assessment & Plan (04/18/2023 2:14 PM CDT): At goal on current therapy. Assessment & Plan (10/11/2022 4:14 PM CDT): At goal on current therapy. Assessment & Plan (04/05/2022 2:47 PM SCHOOL BOAT DRIVER): At goal on current therapy. Assessment & Plan (09/28/2021 3:20 PM CDT): At goal on current therapy. Assessment & Plan (03/30/2021 4:28 PM SCHOOL BOAT DRIVER): At goal on current therapy. Snoring 07/07/2019 [...] on file Legal Sex Male 7:37 PM SCHOOL BOAT DRIVER Gender Identity Male 07/06/2019 9:02 PM CDT [...] Comment: Vani ECLIA methodology. According to the [place] U[employer] Association, Serum PSA should decrease and [...] - 04/19/2023 11:12 AM CDT Performed at: Lab[address] [id number] Chemist Instrumentation: Jeff Whitmore PhD, Phone: [phone] Kilo Wakefield MD LAB BLOOD ORDERABLES Fi nal Result [facility] - 01 from Last 3 Months or Most Recently Relevant to Health Maintenance Insurance [facility] CHOICE PLUS [facility] CHOICE PLUS Care Teams Mattress Stuffer Relationship Specialty Start Date End Date Kilo Wakefield MD PCP - General Endocrinology Diabetes & Metabolism 09/17/20
--- NOTE | 2024-09-09 02:10 | ED_ITS ---
HPI - Skin/Abscess/Foreign Bdy General Chief complaint: Skin/Abscess/Foreign Body Stated complaint: bee sting Time Seen by Provider: 09/09/24 02:02 History of Present Illness HPI narrative: 59-year-old male presents emergency department with concerns for walks for bee stings to his lower legs. Patient states he was mowing the lawn at 5:00 p.m. yesterday evening when he believes he mowed over a wasp or bee nest. He states he had several stings to his lower legs and ankles. He states since then he has had itching and burning to these areas. He has attempted Benadryl, baking soda, Tylenol without improvement. He denies lip or tongue swelling, difficulty breathing, history of allergic reactions or anaphylaxis to wasp or bee stings. Related Data Home Medications ?Medication ?Instructions ?Recorded ?Confirmed ?Last Taken ?Type alprazolam 0.5 mg tablet 0.25 mg PO DAILY PRN anxiety 02/18/24 02/18/24 Unknown History aspirin 81 mg capsule 81 mg PO DAILY 02/18/24 02/18/24 Unknown History atorvastatin 40 mg tablet 40 mg PO DAILY 02/18/24 02/18/24 Unknown History metoprolol succinate 50 mg 50 mg PO DAILY 02/18/24 02/18/24 Unknown History tablet,extended release 24 hr pantoprazole 40 mg tablet,delayed 40 mg PO DAILY 02/18/24 02/18/24 Unknown History release paroxetine HCl 40 mg tablet 40 mg PO DAILY 02/18/24 02/18/24 Unknown History Allergies Allergy/AdvReac Type Severity Reaction Status Date / Time No Known Allergies Allergy Verified 09/08/24 22:42 Review of Systems Review of Systems: All systems reviewed & are unremarkable except as noted in HPI and below PMFSH Past Medical History Medical History Essential hypertension History of anxiety Social History Social History Smoking status: Former smoker Tobacco type: cigars Substance use type: does not use Living arrangements: with family Spiritual care concerns: No Exam Narrative: GENERAL: Well-appearing, well-nourished, and in no acute distress. HEAD: Normocephalic, atraumatic. EYES: EOMI. ENT: Nares clear, no rhinorrhea or epistaxis. Mucous membranes moist. NECK: Supple. CHEST: Clear to auscultation. No respiratory distress. HEART: Regular rate and rhythm. No murmur heard. Normal peripheral pulses. EXTREMITIES: Faint small patches of erythema to the medial aspect of bilateral ankles. No wheals her, warmth, drainage, foreign bodies or stingers. No crepitus. DP pulses are 2+. Sensation intact. SKIN: Warm, dry, no rash. NEURO: No focal deficits. Alert and oriented x3 Course Vital Signs Vital signs: Vital Signs Temperature 97.5 F L 09/08/24 22:37 Pulse Rate 77 09/08/24 22:37 Respiratory Rate 16 09/08/24 22:37 Blood Pressure 155/95 H 09/08/24 22:37 Pulse Oximetry 97 09/08/24 22:37 Oxygen Delivery Room Air 09/08/24 22:37 Temperature 97.3 F L 09/09/24 00:23 Pulse Rate 76 09/09/24 02:01 Respiratory Rate 14 09/09/24 02:01 Blood Pressure 170/110 H 09/09/24 02:01 Pulse Oximetry 97 09/09/24 02:01 Oxygen Delivery Room Air 09/08/24 22:37 MDM - Skin/Abscess/Foreign Bdy MDM Narrative Medical decision making narrative: 59-year-old male presents emergency department with concerns for wasp/bee stings to his lower extremities. Patient was mowing the lawn around 5:00 p.m. yesterday when he believes he ran over a wasp or bee nest. Patient states he felt several stings to his lower tib-fib/ankles. Triage vitals with elevated blood pressure, otherwise unremarkable. Exam is notable for faint patches of erythema to the medial ankles. No foreign bodies or stingers. No urticaria or evidence of secondary bacterial infection. Patient has no lip or tongue swelling, no wheezing or evidence of anaphylaxis. Patient was given IM Decadron, Benadryl, IM Toradol and Pepcid in the ED. Pepcid, Tylenol, ibuprofen, triamcinolone cream, Benadryl sent to pharmacy. Advised follow-up with PCP discussed strict ED return precautions. Patient is agreeable to plan verbalized understanding. Discharged in stable condition. Discharge Plan Discharge Clinical Impression: Accidental insect sting Patient Disposition: Home Condition: Stable Instructions: Antibiotic Form, Insect Bite or Sting (ED) Additional Instructions: Take the medications as directed. Follow-up closely with her primary care provider. Call 911 and return to the emergency department immediately if you develop lip swelling, tongue swelling, difficulty breathing or other concerning symptoms. Patient Language: Danish Prescriptions: New diphenhydramine HCl 25 mg capsule 25 mg PO TID PRN (Reason: itching) Qty: 14 0RF famotidine 20 mg tablet 20 mg PO BID Qty: 14 0RF triamcinolone acetonide 0.1 % cream 1 applic topical BID Qty: 15 0RF ibuprofen 800 mg tablet 800 mg PO TID PRN (Reason: pain) Qty: 20 0RF No Action metoprolol succinate 50 mg tablet extended release 24 hr 50 mg PO DAILY atorvastatin 40 mg tablet 40 mg PO DAILY paroxetine HCl 40 mg tablet 40 mg PO DAILY pantoprazole 40 mg tablet,delayed release (DR/EC) 40 mg PO DAILY alprazolam 0.5 mg tablet 0.25 mg PO DAILY PRN (Reason: anxiety) aspirin 81 mg capsule 81 mg PO DAILY cyclobenzaprine 10 mg tablet 10 mg PO TID PRN (Reason: muscle spasm) Qty: 14 0RF Follow-up/Referrals: PHYSICIAN NOT ON STAFF,NONSTAFF [Primary Care Provider] -
[2024-09-09] MEDS: diphenhydrAMINE HCl CAP 25 MG CAPSULE 50 MG PO (02:22)
[2024-09-09] MEDS: FAMOTIDINE 20 MG TABLET PO (02:23)
[2024-09-09] MEDS: KETOROLAC 30 MG/ML VIAL (*BKC) IM (02:24)
[2024-09-09] MEDS: dexAMETHasone SOD PHOS INJ 10 MG/ML 1 ML VIAL IM (02:24)
[2024-09-09 02:31] VITALS: BP 170/110; PULSE 76; RESP 14; O2SAT 97
== END 2024-09-09 02:35 | disposition home or self-care (01) ==
PROVIDERS: Emergency Provider Physician Assistant
DX: T63.481A Toxic effect of venom of other arthropod, accidental (unintentional), initial encounter (principal); I10 Essential (primary) hypertension; F41.9 Anxiety disorder, unspecified
CPT/HCPCS: 96372; 99284; A9270; J1100; J1885